=== PATIENT | male | born 1990 | race Caucasian/White ===

== ENCOUNTER → 2018-08-24 | Outpatient (CLI) | payer BC ==
[2018-08-26 04:09] LABS: CHLAMYDIA TRACHOMATIS, NAA Negative (Negative); NEISSERIA GONORRHOEAE, NAA Negative (Negative)
== END ==
LOC: LAB SHORT 14:03 → LAB 14:03
PROVIDERS: Registered Nurse Community Health
DX: Z20.2 Contact with and (suspected) exposure to infections with a predominantly sexual mode of transmission (principal)
CPT/HCPCS: 87491; 87591

== ENCOUNTER → 2021-03-13 | Outpatient (CLI) | payer BC ==
[2021-03-15 11:08] LABS: CHLAMYDIA BY NAA Negative (Negative); GONOCOCCUS BY NAA Negative (Negative); TRICH VAG BY NAA Negative (Negative)
== END ==
LOC: LAB 10:15 → LAB SHORT 10:15
PROVIDERS: Registered Nurse Community Health
DX: Z11.3 Encounter for screening for infections with a predominantly sexual mode of transmission (principal)
CPT/HCPCS: 87491; 87591; 87661

== ENCOUNTER → 2023-01-21 | Outpatient (CLI) | payer BC ==
[2023-01-24 06:10] LABS: CHLAMYDIA TRACHOMATIS, NAA Negative (Negative)
== END ==
LOC: LAB 17:54 → LAB SHORT 17:54
PROVIDERS: Physician Assistant
DX: N50.819 Testicular pain, unspecified (principal); R10.84 Generalized abdominal pain
CPT/HCPCS: 87086; 87491; 87591